=== PATIENT | male | born 1950 ===

== ENCOUNTER 2022-02-06 19:21 | Emergency (ER) | payer BC, MEDICARE ==
[2022-02-06 20:11] LABS: ANION GAP 10.8 mEq/L (7-13); CHLORIDE,CL 105 mmol/L (98-107); SODIUM,NA 141 mmol/L (136-145)
== END 2022-02-06 21:12 | disposition left against medical advice (07) ==
LOC: DL.ED 19:21
DX: R07.89 Other chest pain (principal); F41.9 Anxiety disorder, unspecified; I25.10 Atherosclerotic heart disease of native coronary artery without angina pectoris; I10 Essential (primary) hypertension; Z86.16 Personal history of COVID-19; Z79.899 Other long term (current) drug therapy; Z79.01 Long term (current) use of anticoagulants; Z79.82 Long term (current) use of aspirin
CPT/HCPCS: 36415; 71045; 80053; 80307; 83735; 83880; 84484; 85025; 85379; 85610; 93005; 99285-25